=== PATIENT | male | born 1955 | race Caucasian/White ===

== ENCOUNTER 2017-08-21 06:57 | Day surgery (SDC) | payer BC ==
[~2017-08-21 06:57] MED LIST: Lactated Ringers 1,000 ML IV SCH
[2017-08-21] MEDS ORDERED: Propofol 200 MG/20 ML SDV ONE (09:33)
[2017-08-21] MEDS ORDERED: fentaNYL 100 MCG/2 ML SDV ONE (09:33)
[2017-08-21 10:55] VITALS: BP 121/70
--- NOTE | 2017-08-21 17:53 | OR ---
PREOPERATIVE DIAGNOSES: 1. Family history of colon cancer-brother. 2. Intermittent blood per rectum. POSTOPERATIVE DIAGNOSIS: Sigmoid diverticulosis, otherwise, normal exam. PROCEDURE DONE: Total flexible colonoscopy. INDICATIONS: This is a 62-year-old gentleman who comes in for colonoscopy due to a family history of colon cancer in a brother and also he has been having some intermittent rectal bleeding. His last colonoscopy was 7 years ago. TECHNIQUE: The patient was brought to the endoscopy suite, placed in the left lateral decubitus position. He was sedated with MAC anesthesia per [employer]. A flexible video colonoscope was then passed transanally and under visualization advanced to the cecum. Examination revealed a normal ascending, transverse, and descending colon. The sigmoid colon revealed moderate diverticulosis and the rectum was normal. There was no evidence of any polyps or source for bleeding. No significant internal hemorrhoids. The scope was then withdrawn. He tolerated the procedure well. FINAL IMPRESSION: 1. Sigmoid diverticulosis, otherwise, normal exam. 2. Family history of colon cancer-brother. PLAN: He should continue with colonic surveillance every 5 years hereafter due to his family history. SCM: 08/21/2017 10:02:18 MODL: 08/21/2017 17:32:53 /[id number]
== END 2017-08-21 11:50 | disposition home or self-care (01) ==
LOC: VM.SDS 06:57
PROVIDERS: ATTEND Surgery
DX: K57.30 Diverticulosis of large intestine without perforation or abscess without bleeding (principal); I10 Essential (primary) hypertension; E78.5 Hyperlipidemia, unspecified; M10.9 Gout, unspecified; E11.40 Type 2 diabetes mellitus with diabetic neuropathy, unspecified; J31.0 Chronic rhinitis; E66.01 Morbid (severe) obesity due to excess calories; Z68.39 Body mass index [BMI] 39.0-39.9, adult; Z86.010 Personal history of colon polyps; Z79.82 Long term (current) use of aspirin; Z79.4 Long term (current) use of insulin; Z79.899 Other long term (current) drug therapy; Z88.1 Allergy status to other antibiotic agents; Z80.0 Family history of malignant neoplasm of digestive organs; Z98.890 Other specified postprocedural states
CPT/HCPCS: 82962; J2704; J3010; J7120

== ENCOUNTER 2017-10-16 20:35 | Emergency (ER) | payer BC ==
[2017-10-16] MEDS ORDERED: Sodium Chloride 0.9% 10 ML Syringe FLUSH PRN (20:50)
[2017-10-16] MEDS ORDERED: Sodium Chloride 0.9% 1,000 ML IV ONE (20:50)
--- NOTE | 2017-10-16 20:50 | EDM.PDOC ---
ED HPI GENERAL MEDICAL PROBLEM - General Chief Complaint: General Stated Complaint: FALL Time Seen by Provider: 10/16/17 20:40 Source of Information: Reports: Patient, Family History Limitations: Reports: No Limitations - History of Present Illness INITIAL COMMENTS - FREE TEXT/NARRATIVE: Patient was playing pickleball at the [facility] and fell into a wall. He hit his head and shoulders. No LOC. Has abrasion to top of forehead, sore shoulders. No other complaints. Onset: Today, Sudden Location: Reports: Face, Upper Extremity, Left, Upper Extremity, Right Quality: Reports: Ache Severity: Mild - Related Data Allergies Allergy/AdvReac Type Severity Reaction Status Date / Time cefprozil [From Cefzil] Allergy Intermediate Hives Verified 08/21/17 07:47 Home Meds: Home Meds Allopurinol [Zyloprim] 300 mg PO DAILY 07/19/16 [History] Benazepril/Hydrochlorothiazide [Lotensin Hct 20-12.5 mg Tablet] 1 tab PO DAILY 07/19/16 [History] Insulin Degludec/Liraglutide [Xultophy 100 Unit-3.6MG/ml Pen] 40 units SQ DAILY 07/19/16 [History] Insulin Lispro [HumaLOG] 10 unit SQ BID 07/19/16 [History] Insulin Lispro [HumaLOG] 20 unit SQ WITHDINNER 07/19/16 [History] Pravastatin Sodium [Pravachol] 40 mg PO DAILY 07/19/16 [History] amLODIPine [Norvasc] 10 mg PO DAILY 07/19/16 [History] metFORMIN [Glucophage XR] 1,000 mg PO BID 07/19/16 [History] Aspirin [Halfprin] 81 mg PO DAILY 08/16/17 [History] Past Medical History HEENT History: Reports: Allergic Rhinitis Cardiovascular History: Reports: High Cholesterol, Hypertension, Other (See Below) Other Cardiovascular History: acute chest wall pain Respiratory History: Reports: None Gastrointestinal History: Reports: Colon Polyp, Other (See Below) Other Gastrointestinal History: fm hx colon ca. rectal bleeding Genitourinary History: Reports: Other (See Below) Other Genitourinary History: [employer]ER History: Musculoskeletal History: Reports: Gout, Other (See Below) Other Musculoskeletal History: bilateral knee pain Neurological History: Reports: Neuropathy, Diabetic Psychiatric History: Reports: None Endocrine/Metabolic History: Reports: Diabetes, Type II, Obesity/BMI 30+ Hematologic History: Reports: None Immunologic History: Reports: None Oncologic (Cancer) History: Reports: None Dermatologic History: Reports: None - Past Surgical History Head Surgeries/Procedures: Reports: None HEENT Surgical History: Reports: None Cardiovascular Surgical History: Reports: None Respiratory Surgical History: Reports: None GI Surgical History: Reports: Colonoscopy Male Surgical History: Reports: None Endocrine Surgical History: Reports: None Neurological Surgical History: Reports: None Musculoskeletal Surgical History: Reports: None Oncologic Surgical History: Reports: None Dermatological Surgical History: Reports: None Social & Family History - Tobacco Use Smoking Status *Q: Never Smoker Second Hand Smoke Exposure: No - Recreational Drug Use Recreational Drug Use: No ED ROS GENERAL - Review of Systems Review Of Systems: See Below Constitutional: Reports: No Symptoms HEENT: Reports: No Symptoms Respiratory: Reports: No Symptoms Cardiovascular: Reports: No Symptoms Endocrine: Reports: No Symptoms GI/Abdominal: Reports: No Symptoms : Reports: No Symptoms Musculoskeletal: Reports: Shoulder Pain Skin: Reports: Wound Neurological: Reports: No Symptoms Psychiatric: Reports: No Symptoms Hematologic/Lymphatic: Reports: No Symptoms Immunologic: Reports: No Symptoms ED EXAM, GENERAL - Physical Exam Exam: See Below Exam Limited By: No Limitations General Appearance: Alert, WD/WN, No Apparent Distress Eye Exam: Bilateral Eye: EOMI, Normal Inspection, PERRL Ears: Normal TMs Nose: Normal Inspection, Normal Mucosa, No Blood Throat/Mouth: Normal Inspection, Normal Lips, Normal Teeth, Normal Gums, Normal Oropharynx, Normal Voice, No Airway Compromise Head: Atraumatic, Normocephalic Neck: Normal Inspection, Supple, Non-Tender, Full Range of Motion Respiratory/Chest: No Respiratory Distress, Lungs Clear, Normal Breath Sounds, No Accessory Muscle Use, Chest Non-Tender Cardiovascular: Normal Peripheral Pulses, Regular Rate, Rhythm, No Edema, No Gallop, No JVD, No Murmur, No Rub GI/Abdominal: Normal Bowel Sounds, Soft, Non-Tender, No Organomegaly, No Distention, No Abnormal Bruit, No Mass Extremities: Normal Range of Motion (shoulders have full range, but sore) Neurological: Alert, Oriented, CN II-XII Intact, Normal Cognition, Normal Gait, Normal Reflexes, No Motor/Sensory Deficits Psychiatric: Normal Affect, Normal Mood Skin Exam: Warm, Dry, Intact, Normal Color, No Rash Lymphatic: No Adenopathy Departure - Departure Time of Disposition: 20:56 Disposition: Home, Self-Care 01 Condition: Good Clinical Impression: Head injury without concussion or intracranial hemorrhage - Discharge Information Instructions: Muscle Pain, Adult Referrals: Dina Camargo MD [Primary Care Provider] - Forms: ED Department Discharge Additional Instructions: Try to use ibuprofen and tylenol for the next couple of days for the muscle aches and pain If you develop any confusion, sharp sudden severe headache, nausea and vomiting , or confusion come in to the clinic or the ER for further evaluation Your physical exam does not lead me to suspect any fractures, however if you develop increasing pain, please come back for x-rays as appropriate Please stay hydrated Call the emergency room with any questions or concerns - Problem List & Annotations (1) Head injury without concussion or intracranial hemorrhage SNOMED Code(s): 12107772 Code(s): S09.90XA - UNSPECIFIED INJURY OF HEAD, INITIAL ENCOUNTER Status: Acute Priority: Low Current Visit: Yes Qualifiers: Encounter type: initial encounter Qualified Code(s): S09.90XA - Unspecified injury of head, initial encounter - Problem List Review Problem List Initiated/Reviewed/Updated: Yes - Assessment/Plan Assessment:: head injury shoulder pain Plan: Try to use ibuprofen and tylenol for the next couple of days for the muscle aches and pain If you develop any confusion, sharp sudden severe headache, nausea and vomiting , or confusion come in to the clinic or the ER for further evaluation Your physical exam does not lead me to suspect any fractures, however if you develop increasing pain, please come back for x-rays as appropriate Please stay hydrated Call the emergency room with any questions or concerns
[2017-10-16] MEDS ORDERED: Activated Charcoal/Sorbitol Susp 50 GM/240 ML Bottle PO ONE (20:51)
[2017-10-17 03:18] VITALS: BP 162/90
== END 2017-10-16 21:00 | disposition home or self-care (01) ==
LOC: VM.ED 20:35
DX: S09.90XA Unspecified injury of head, initial encounter (principal); E11.9 Type 2 diabetes mellitus without complications; E66.9 Obesity, unspecified; I10 Essential (primary) hypertension; Z88.1 Allergy status to other antibiotic agents; Z79.899 Other long term (current) drug therapy; Z79.84 Long term (current) use of oral hypoglycemic drugs; Z79.82 Long term (current) use of aspirin; W22.01XA Walked into wall, initial encounter; Y93.89 Activity, other specified
CPT/HCPCS: 99283

== ENCOUNTER 2023-04-27 06:55 | Day surgery (SDC) | payer BC, MEDICARE ==
[2023-04-27] MEDS: Lactated Ringers 1,000 ML IV SCH (07:19)
[2023-04-27 07:38] LABS: GLUCOSE,POC 185 mg/dL (70-99)
[2023-04-27] MEDS ORDERED: Midazolam 1 MG/ML 2 ML SDV IVPUSH PRN (08:18)
[2023-04-27] MEDS ORDERED: fentaNYL 100 MCG/2 ML SDV IVPUSH ONE (08:19)
[2023-04-27 09:18] VITALS: BP 141/89; PULSE 81
== END 2023-04-27 09:36 | disposition home or self-care (01) ==
LOC: VM.SDS 06:55
PROVIDERS: ATTEND Family Medicine
DX: Z12.11 Encounter for screening for malignant neoplasm of colon (principal); D12.4 Benign neoplasm of descending colon; K57.30 Diverticulosis of large intestine without perforation or abscess without bleeding; I10 Essential (primary) hypertension; E78.00 Pure hypercholesterolemia, unspecified; E11.42 Type 2 diabetes mellitus with diabetic polyneuropathy; M48.02 Spinal stenosis, cervical region; M54.12 Radiculopathy, cervical region; G89.29 Other chronic pain; M25.562 Pain in left knee; M1A.0690 Idiopathic chronic gout, unspecified knee, without tophus (tophi); E66.01 Morbid (severe) obesity due to excess calories; D17.22 Benign lipomatous neoplasm of skin and subcutaneous tissue of left arm; L98.9 Disorder of the skin and subcutaneous tissue, unspecified; Z80.0 Family history of malignant neoplasm of digestive organs; Z79.4 Long term (current) use of insulin; Z79.899 Other long term (current) drug therapy; Z88.1 Allergy status to other antibiotic agents; Z79.84 Long term (current) use of oral hypoglycemic drugs
CPT/HCPCS: 82947; 88305; J7120